=== PATIENT | female | born 1940 | race Caucasian/White ===

== ENCOUNTER 2021-03-16 15:57 | Emergency (ER) | payer OTHER ==
[~2021-03-16] VITALS: Ht 149.9 cm; Wt 57.1 kg
[~2021-03-16 15:57] MED LIST: ABILIFY 5 MG TAB5 MG PO; ACID CONTROL150 MG PO; AMBEREN PO; ARICEPT 5 MG TAB5 MG PO; ASPIR 8181 M1 PO; BONIVA150 MG PO; CABERGOLINE 0.0.5 M1 PO; CALCIUM PO; COLACE100 MG PO; DESONIDE CR. 1515 GM TOP; FISH OIL 1,0001 EAC5 PO; FLONASE 0.05%50 MCG NASAL; FLUVOXAMINE MA100 MG PO; GABAPENTIN 100100 MG PO; HYDROCHLOROTHIA25 M2 PO; HYDROCODON-ACE1 EAC8 PO; HYDROCODONE-APA1 TA1 PO; IBUPROFEN 600600 M1 PO; KLOR-CON 10 ER10 MEQ PO; LISINOPRIL20 MG PO; LUVOX 50MG TABL50 M1 PO; LUVOX CR100 MG PO; MAGNES PO; NAMENDA XR21 MG PO; OMEGA 3-6-9 CO1 EACH PO; PRILOSEC20 MG PO; PROBIOTIC1 EAC1 PO; PROBIOTIC1 EACH PO; RESTORIL7.5 MG PO; ROVIN-CF OF TA1 EACH PO; SIMVASTATIN20 MG PO; THERALITH XR T1 EACH PO; THIOLA100 MG PO; VITAMIN D31000 UNI2 PO; VITAMIN E400 UNIT PO; VITAMINC500 PO; WELLBUTRIN 100100 M1 PO; WELLBUTRIN 100100 MG PO; ZOCOR20 MG PO; [UNRECOGNIZED DRUG - OTHER] TOP
[2021-03-16 17:16] LABS: URINE BILIRUBIN NEGATIVE (Negative); URINE BLOOD NEGATIVE (Negative); URINE CLARITY CLEAR; URINE COLOR YELLOW; URINE GLUCOSE-RANDOM* NEGATIVE (Negative); URINE KETONES NEGATIVE (Negative); URINE NITRITE-REFLEX NEGATIVE (Negative); URINE PROTEIN (DIPSTICK) NEGATIVE (Negative); URINE SPECIFIC GRAVITY 1.015 (1.005-1.035); URINE UROBILINOGEN 0.2 E.U./dl (0.2-1.0)
[2021-03-16 17:20] LABS: URINE LEUKOCYTES-REFLEX 1+ (Negative)
[2021-03-16 17:22] LABS: CALCIUM 9.6 mg/dL (8.5-10.1); CREATININE 0.9 mg/dL (0.6-1.0); POTASSIUM 4.1 mmol/L (3.5-5.1)
[2021-03-16 17:28] LABS: CASTS None Seen /LPF (None Seen); SQUAMOUS 0-3 Few /LPF (0-3)
[2021-03-16 17:28] LABS: HEMATOCRIT 39.9 % (37.0-47.0); HEMOGLOBIN 13.5 gm/dL (12.0-15.0); MCH 32.4 pg (26.0-34.0); MCHC 33.9 g/dL (28.0-37.0); MCV 95.6 fL (80.0-100.0); RBC 4.17 mil/uL (4.20-5.00); RDW 12.9 % (10.5-14.5); WBC 6.1 thou/uL (4.0-11.0)
[2021-03-16 17:29] LABS: BACTERIA-REFLEX 1-9 Few /HPF (None Seen); CRYSTALS None Seen /LPF (None Seen); URINE RBC 1-2 Rare /HPF (NONE SEEN); URINE WBC-REFLEX 6-15 Few /HPF (0-5)
[2021-03-16] MEDS ORDERED: ACETAMINOPHEN500 MG PO (18:27)
[2021-03-16 19:31] LABS: ALBUMIN 3.6 g/dL (3.4-5.0); DIRECT BILIRUBIN < 0.1 mg/dL (<0.1-0.2); SGOT 21 U/L (15-37); SGPT 19 U/L (30-65); TOTAL BILIRUBIN 0.2 mg/dL (0.2-1.0); TOTAL PROTEIN 7.5 g/dL (6.4-8.2)
[2021-03-16 21:05] VITALS: BP 187/89
--- NOTE | 2021-03-17 07:53 | EKG ---
[place] [place] [address] ELECTROCARDIOGRAM REPORT Name: ROSELINE MATHEW [id number] Admission: 03/16/21 Attend Phys: Discharge: 03/16/21 Date of : 44 Report #: [id number] [facility] ED Test Date: 2021-03-16 Test Time: 17:00:57 Pat Name: ROSELINE MATHEW Department: Room: Gender: F Metal Bonder: [id number] : 1940 Requested By: Kat Pelayo Order Number: [id number] MD: Skyler Crowley Measurements Intervals [place] Rate: 73 P: 18 AK: 187 QRS: -15 QRSD: 130 T: 31 QT: 441 QTc: 486 Interpretive Statements Sinus rhythm Atrial premature complex Probable left atrial enlargement Left bundle branch block Compared to ECG 08/22/2014 11:48:09 Atrial premature complex(es) now present Left bundle-branch block now present Electronically Signed On 03-17-2021 7:53:00 PARAPROFESSIONAL AIDE by Skyler Crowley [email or web address] <ELECTRONICALLY SIGNED> By: Skyler Crowley MD, [facility] 03/17/21 0753 1700 1700 Skyler Crowley MD, FAC /EPI
== END 2021-03-16 21:05 ==
LOC: ER 15:57
PROVIDERS: Emergency Medicine
DX: F29 Unspecified psychosis not due to a substance or known physiological condition (principal); Z20.822 Contact with and (suspected) exposure to COVID-19; F32.9 Major depressive disorder, single episode, unspecified; F41.9 Anxiety disorder, unspecified; I10 Essential (primary) hypertension; E78.00 Pure hypercholesterolemia, unspecified; Z87.442 Personal history of urinary calculi; Z90.89 Acquired absence of other organs; Z98.890 Other specified postprocedural states; Z79.82 Long term (current) use of aspirin; Z79.1 Long term (current) use of non-steroidal anti-inflammatories (NSAID); Z79.899 Other long term (current) drug therapy; Z88.2 Allergy status to sulfonamides

== ENCOUNTER 2021-03-16 17:42 | Inpatient (IN) | payer OTHER ==
[~2021-03-16] VITALS: Ht 149.9 cm; Wt 57.3 kg
[2021-03-16] MEDS ORDERED: ACETAMINOPHEN500 MG PO (18:27)
[2021-03-16 21:15] VITALS: BP 157/100
--- NOTE | 2021-03-17 01:10 | NUR ---
PATIENT ADMITTED TO [facility] UNIT BY CART AROUND 2100. SHE WAS A/0X1 AND ANXIOUS. PATIENT IS A RESIDENT AT THE [facility] WHERE SHE AND HER LIVE. THEY BOTH ARE IN ASSISTED LIVING MEMORY CARE. SPOKE WITH PATIENT'S DAUGHTER/DPOA,MUNIRA MATHEW BY PHONE. SHE STATES PHONES HAVE BEEN DOWN AT [facility] AND WITH FAMILY MEMBERS AND HAVE NOT HAD CONTACT WITH PATIENT FOR A WEEK. SHE FEELS PATIENT IS ACTING OUT BECAUSE SHE DOESN'T KNOW WHERE HER FAMILY IS AND MAY FEEL DESERTED. PATIENT HAS YELLED OUT COMMENTS THAT HER FAMILY HAS LEFT HER. PATIENT HAS A LONG HEALTH HISTORY OF HTN,HLD,OSTEOPOROSIS, SPONDOLYSIS OF CERVICAL AND THORACIC BACK. PATIENT HAD SURGERY 10 YEARS AGO ON CERVICAL SPINE WHICH LEFT HER WITH SEVERE CHRONIC PAIN IN CERVICAL AND THORACIC AREA. 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 SHE HAS FALLEN MULTIPLE TIMES BEFORE COMING HERE AND DAUGHTER STATES SHE ALWAYS SEEMS TO FALL HEAD FIRST AND HIT HER HEAD. PATIENT ALSO IS ON A MED THAT IN NONFORMULARY FOR HISTORY OF REOCCURING KIDNEY STONES. HX OF CHRONIC EAR INFECTIONS AND SCALP AND EARS ITCHING. PATIENT HAS TACTILE SENSITIVITY OF THE SKIN. SHE EXPERIENCES PAIN WHEN TOUCHED AND NEEDS TO WEAR SOFT CLOTHING. PATIENT ALSO HAS BEEN KNOWN TO PULL HER HAIR OUT WHEN HER SCALP AND EARS ARE ITCHING BADLY. DAUGHTER IS IN [place], [place] LOOKING FOR MEDICAID PLACEMENT FOR HER PARENTS AT THIS TIME. SHE IS IN HOPES OF HAVING THEM MOVED THERE IN NEXT MONTH. CONSENTS GONE OVER WITH DTR/DPOA BY PHONE AND CODE GIVEN TO THE DAUGHTER. DAUGHTER STATES THAT PT WALKS WITH WALKER. SHE HAS BEEN IN BED SINCE ARRIVING TO ED AND [facility]. PATIENT WAS SCREAMING AT TOP OF HER LUNGS WITH LOUD SQUEALS AND SCREAMING THAT SHE WANTS TO KILL THE PEOPLE THAT SENT HER HERE. SHE DOESN'T UNDERSTAND WHY SHE NEEDS TO BE HERE. SHE FEELS HER FAMILY HAS DESERTED HER. TRIED TALKING WITH PATIENT TO CALM HER. SHE CANNOT REMEMBER INSTRUCTIONS D/T DEMENTIA. DR MAC WAS CALLED AND ORDERS GIVEN TO GIVE PATIENT HALDOL 5MG IM WITH ATIVAN 2MG IM. PATIENT HELD ANOTHER NURSE'S HAND AND DID NOT NEED A MANUAL HOLD. SHE TOLERATED WELL BUT DID SAY HER ARM WAS SORE. PATIENT BEGAN CALMING WITHING 20 MINUTES. SHE REMAINS AWAKE AT THIS TIME BUT IS QUIET AND TALKS TO SELF AT TIMES AND TAKES COVERS OFF AND THEN WANTS BACK ON BECAUSE COLD. Theodore LOZANO NP NOTIFIED AND SHE WILL PUT IN ADDITIONAL ORDER FOR ITCHING SHE SAID. PHYSICAL ASSESSMENT WNL. PATIENT'S BP WAS 157/130 WHEN FIRST GETTING HERE. RECHECKED MANUALLY AND WAS 180/130. DR MAC NOTIFIED AND RECHECKED BP AFTER HALDOL/ATIVAN GIVEN AND BP CAME DOWN TO 157/60. PATIENT GIVEN NONSLIP SOCKS, WHICH SHE TOOK OFF ONCE IN BED. PT WITH BRIEF ON. CONTINENT SO FAR. BED IN LOW POSITION AND BED ALARM ON. ROUTINE ROUNDS TO ASSESS SAFETY AND STATUS OF PATIENT.
[2021-03-17 06:20] LABS: CHOLESTEROL 264 mg/dL (<200); HDL CHOLESTEROL 77 mg/dL (>40); LDL CHOLESTEROL 175 mg/dL (<100); TC:HDL 3.4 Ratio (Not establshd); TRIGLYCERIDE 60 mg/dL (<150); VLDL 12 mg/dL (<40)
[2021-03-17 06:22] LABS: SERUM ASSESSMENT Clear
[2021-03-17 10:04] VITALS: BP 161/102
[2021-03-17 10:24] VITALS: BP 161/102
--- NOTE | 2021-03-17 11:12 | NUR ---
RESUMMED CARE FROM OVERNIGHT SHIFT THIS AM, PATIENT IN ROOM SLEEPING. I WOKE PATIENT UP TO EAT BREAKFAST PATIENT STARTED YELLING LOUDLY. DR MAC MOVED PATIENT NEXT TO NURSES STATION. PATIENT AFTER 30 MINUTES TOOK MEDICATION CRUSHED IN APPLESAUCE. PATIENT CONFUSED AND NOT ABLE TO TELL ME ABOUT SI/HI/AH/VH AT PRESENT. PATIENTS ABDOMEN SOFT BOWEL SOUNDS PRESENT, PATIENTS LUNGS CLEAR. PATIENT IS SLEEPING IN AMPARO CHAIR MOST OF THE MORNING; WILL CONTINUE TO MONITOR PATIENT FOR SAFETY AND BEHAVIORS.
--- NOTE | 2021-03-17 17:45 | NUR ---
ANJEL and Dr. Auguste were able to talk to the Pt's daughter/DPOA, Nae [phone]. Nae expressed concerns about Pt's hx of kidney stones, brain tumor, and other issues that may be causing the Pt pain and to yell out. Dr. Auguste explained that some of the concerns expressed, Pt may need to be seen on outpatient concern the matters. It was explained to Nae that due to the type of unit [facility] is some procedures could not be complete such as an MRI. Nae expressed disappointment about this. Dr. Auguste went over medications. Placement was discussed. Nae stated that she is currently looking for placement in [place] for the Pt. Nae was not sure if she would be able to secure placement by the end of this hospital stay. A family meeting was scheduled for 03/24/2021 @ 12pm.
[2021-03-17 20:07] VITALS: BP 140/48
[2021-03-18 01:06] LABS: GLYCOHEMOGLOBIN (HGB A1C) 5.9 % (4.8-5.6)
--- NOTE | 2021-03-18 02:43 | NUR ---
PATIENT SAT UP IN DINING ROOM AT A TABLE IN AMPARO CHAIR. SHE WAS CALM AND COOPERATIVE FOR THE MOST PART. A COUPLE OF TIMES SHE CRIED OUT AND SCREAMED BUT STATED SHE WAS TIRED. ATTEMPTED TO WALKE PATIENT TO ROOM WITH WALKER BUT SHE COULD ONLY TAKE A FEW STEPS AND WE WHEELED HER TO HER ROOM THE REST OF THE WAY. SHE STATES SHE NEEDS TO USE THE RESTROOM. SAT HER ON THE [facility] AND SHE VOIDED. ASSISTED PATIENT TO BED. SHE DENIES SI/HI/AVH. HER SISTER CALLED TO TALK WITH HER AFTER WE JUST GOT HER INTO BED BUT WHEN PHONE WAS GIVEN TO HER SHE SAID INTO THE PHONE, "TOO LATE." AND HUNG UP. SISTER CALLED AND SPOKE WITH THIS NURSE. SHE HAD THE CODE AND WAS GIVEN BRIEF UPDATE OF HOW PATIENT HAS BEEN TODAY. PATIENT HAS BEEN RESTING REST OF NIGHT. NO PAIN MEDS GIVEN SO FAR THIS EVENING. SHE HAD SOME SHORTLY BEFORE THIS SHIFT. BED IN LOW POSITION AND BED ALARM IS ON. ROUTINE ROUNDS TO ASSESS SAFETY AND STATUS OF PATIENT.
--- NOTE | 2021-03-18 09:25 | H ---
[facility] [place] [address] HISTORY AND PHYSICAL Name: ROSELINE MATHEW Room #: 525A-A ADM IN M.R.#: [id number] Admission: 03/16/21 Attend Phys: Alfred Mclean DO Discharge: Date of : 44 Report #: [id number] THIS REPORT FOR: cc: Javy Vallejo MD,Javy Mclean,Alfred Castro DO ~ DATE OF SERVICE: 03/17/2021 INPATIENT PSYCHIATRIC EVALUATION ATTENDING PHYSICIAN: Alfred Mclean DO HEALTHCARE CONSULTING MANAGER: Alfred Benson MD REASON FOR ADMISSION: Reported increased agitation and assaultiveness at the assisted living facility at the [facility]. SOURCES OF INFORMATION: Records from the [facility], hospital Emergency Room records, telephone conversation with her daughter, and niece. CHIEF COMPLAINT: "Aaaaah as in screaming." HISTORY OF PRESENT ILLNESS: This is a 81-year-old female with documented history of Alzheimer's dementia. She has been in an assisted living for several years. She was sent out for refusing medications, frequent agitation, and screaming constantly. Her lives with her there, he has dementia as well. She was evidently aggressive with him. She is oriented to person, not to place or time for me. The patient has had several years of neurodegenerative illness. The patient really was not able to give me a good history, so switching over to her daughter who lives in [place], [place], but now is visiting [place], [place], where she is looking for long-term care facility for them. She describes that [facility] Val[facility]. 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 She is x 1. No history of physical, sexual or emotional abuse. She smoked cigarettes until her 50s, so I would say she has not smoked in 20 years. No history of drug or alcohol use. She was born and raised in [place], [place]. In terms of family history, her mother had dementia. She has not had a prior psychiatric hospitalizations since. Currently, she did have outpatient psychiatric services through Dr. Duran in [place]. Apparently, he started her on Luvox and bupropion. The patient has 3 daughters, told her oldest daughter has Down syndrome and lives in [place], the middle daughter has significant bipolar disorder as well as borderline personality disorder and lives in [place], and her younger daughter is her DPOA and the one we spoke to, her name is Latasha Mathew and her number is [phone]. [address] [address] HISTORY AND PHYSICAL Name: ROSELINE MATHEW Room #: 525A-A [facility] IN M.R.#: [id number] Admission: 03/16/21 Attend Phys: Alfred Mclean DO Discharge: Date of : 44 Report #: [id number] PAST MEDICAL PROBLEMS: Chronic kidney disease stage III, history of calculus of the kidney, history of diabetes mellitus type 2, benign neoplasm of the pituitary gland, urge incontinence, and history of irritable bowel syndrome with diarrhea, spinal stenosis. REVIEW OF SYSTEMS: Not able to be obtained. PAST SURGICAL HISTORY: Tonsillectomy, back surgery, wrist fracture. ALLERGIES: The patient has allergies to SULFA medications. 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 She is taking a non-formulary med, carbogoline I believe 400 mg twice a day, this is [facility] med. She had been taking Aricept at the [facility], which I have discontinued and she was taking memantine 21 mg XR daily. I also think she is too advanced to benefit from med as a cognitive enhancer. Additional home medications are lisinopril 20 mg oral daily, lactobacillus 1 capsule oral daily, and docusate 100 mg b.i.d. She was started on cephalexin by her hospitalist. She has been taking 300 mg daily Wellbutrin-XL, I plan to discontinue the Wellbutrin; aspirin 81 mg oral daily, continue that; hydrocodone 5/325 one tab p.o. b.i.d. p.r.n. for breakthrough pain; pantoprazole 20 mg oral daily; hydrochlorothiazide 25 mg oral daily; hydroxyzine 10 mg q. 6 hours p.r.n. itching. Additionally for this patient, I have been giving scheduled Seroquel now 25 mg oral t.i.d. with 2.5 mg IM olanzapine, so that is her current medications list. PHYSICAL EXAMINATION: VITAL SIGNS: Today, temperature 35.9, pulse 70, respirations 17, BP 161/102, O2 sat 98%. BMI 25.1, weight 56.444 kilograms, height 149.86 cm. MUSCULOSKELETAL: In Rosa chair, ill, frail-appearing, unkempt. MENTAL STATUS EXAMINATION: Well-developed, ill-appearing female, apparently stated age. Attention limited. Concentration impaired. Screaming at times. Speech was verbally spontaneous, did have word finding difficulties. I was not able to assess well for suicidality, homicidality, and she was not self-injurious. I did see some referencing to unseen others behind me, so I do believe there were visual hallucinations. She denied auditory or tactile hallucinations. Mood and affect was irritable, constricted, congruent. Memory not able to be formally tested. Insight and judgment impaired. Fund of knowledge well below average. [facility] [address] [place] [address] HISTORY AND PHYSICAL Name: ROSELINE MATHEW Room #: 525A-A ADM IN [facility]#: [id number] Admission: 03/16/21 Attend Phys: Alfred Mclean DO Discharge: Date of : 44 Report #: [id number] FORMULATION: A 81-year-old demented female living in an assisted living at the [facility], sent out for resistive oppositional behaviors. DIAGNOSES: Major neurocognitive disorder, likely due to Alzheimer's disease with behavioral disturbance. 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 PLAN: Admitted via DPOA to Geriatric Psychiatry, evaluate, stabilize, obtain collateral. We will keep her as a full code for now. The patient has had suspected difficulty swallowing, so I ordered speech and also PT evaluations for mobility. We will plan for family meeting next Tuesday at noon central time. Medictaion chnages as outlined above. ESTIMATED LENGTH OF STAY: 10-14 days. STRENGTHS: She is insured, supportive family. WEAKNESSES: Advanced age and dementia. All greater than 60 minutes spent on case today. Greater than 50% of time in reviewing records and coordination of care along with telephone conversation with daughter and niece. <ELECTRONICALLY SIGNED> By: Alfred Mclean DO 03/18/21 0925 1227 1434 Alfred Mclean DO /nt
[2021-03-18 13:59] VITALS: BP 168/93
[2021-03-18 14:29] VITALS: BP 168/93
--- NOTE | 2021-03-18 15:58 | NUR ---
RESUMMED CARE FROM OVERNIGHT SHIFT THIS AM, PATIET IN DAY ROOM SITTING QUIET. PATIENT IS ALERT TO SELF ONLY UNABLE TO TELL ME ABOUT SI/HI/AH/VH AT PRESENT. PATIENT IS CONFUSED AND HAS COGNITIVE DO, PATIENT ATE BREAKFAST TOOK MEDICATION CRUSHED IN PUDDING. PATIENTS ABDOMEN SOFT BOWEL SOUNDS PRESENT, PATIENTS LUNGS CLEAR. PATIENTS DAUGHTER CALLED AND WANTED CT AND MEDICATION LIST. I TOLD SHASHI THAT THIS IS A MEDICAL RECORDS ISSUE AND THAT NOTHING COULD BE FAXED UNTIL PATIENT IS DISCHARGED AND A RELEASE SIGNED. PATIENT ASKED ABOUT SENDING CLOTHING FOR PATIENT. I EXPLAINED TO DAUGHTER THAT THE PATIENT IS A HIGH FALL RISK AND IS WEARNG THE YELLOW SHIRT AND YELLOW SLIPPERS AND WEARS HOSPITAL PANTS. PATIENT WALKED WITH PT FROM DAYROOM TO HER ROOM WITH GAIT BELT AND AMPARO CHAIR BEHIND PATIENT. PATIENT HAS NOT DISPLAYED ANY BEHAVIORS THIS SHIFT. WILL CONTINUE TO MONITOR PATIENT FOR SAFETY AND BEHAVIORS.
[2021-03-18 19:29] VITALS: BP 139/95
--- NOTE | 2021-03-18 22:54 | NUR ---
At onset of powerhouse engineer pt was sitting in xochitl chair in day room awake. This shift pt was alert and oriented to self. Pt's speech is difficult to understand. Pt does not answer questions appropriately. Pt makes poor eye contact. Affect is constricted. Pt occassionally yells out from her bed. Pt required her medication to be crushed. Pt compliant wiht vital signs and medications. Pt was put to bed, but became restless and then was moved to the day room in xochitl chair for the night. Fall precautions are in place. Will continue to monitor.
[2021-03-19 03:10] VITALS: BP 219/68
--- NOTE | 2021-03-19 03:55 | NUR ---
FALL EVENT NOTE At approx 0310 pt was sitting in xochitl chair in day room. Pt was seated on table, with yellow socks on, yellow fall risk band on, yellow fall risk shirt on, and sitting on chair alarm. Pt was observed by BARK PEELER to slide out of the chair onto the floor. Pt did not hit her head and there was no sign of injury. Pt appeared to be alert and oriented to self; which has been baseline this shift. Pt did not voice she was in pain. Vital signs were obtained; blood pressure was 219/68, pulse 81 and oxygen saturation was 98%. RN called MANAGER OF OPERATIONS software integration developer Rolanda Carpio to notify of fall and blood pressure. MYA Carpio advised to recheck vital signs in one hour if systlic is above 160. RN called and notified Dr. Jade Dhillon of fall as well. After fall assessment, pt was placed back onto chair and moved closer in the day room to where landscaper were seated. Fall precautions remain in place. Will continue to monitor.
[2021-03-19 04:12] VITALS: BP 139/95
[2021-03-19 07:05] VITALS: BP 183/63
--- NOTE | 2021-03-19 09:14 | NUR ---
Late entry - on 03-18-21 I spoke to [facility] as she had questions regarding our unit and our guidelines. Sent her the welcome letter - her name is Rufina Perez, her email is
[2021-03-19 09:41] VITALS: BP 183/63
[2021-03-19 16:23] VITALS: BP 183/63
--- NOTE | 2021-03-19 18:32 | NUR ---
Resummed pt care this morning from overnight shift. Client was yelling and screaming in activity area, but did not verbalize what issue was or/could not verbalize what issue she had. Client was given prn Haldol with her medications that was crushed in pudding at this time, which helped calm client. Client also given hydrocodone as client was grimacing and appeared to be in pain given observation from non-verbal pain scale. After these prns, client was less tense and exhibited less symptoms. No depression noted, though agitation was evident in behavior this morning. Client did not express any suicidal or homicidal thoughts on this shift. Client did appear to have visual and audio hallucinations prior to administration of prn medication as she was yelling at air and screaming, but calmed significantly after administration. Pt has been toileted several times during this shift, and currently presents no concerns.
[2021-03-19 19:00] VITALS: BP 149/74
--- NOTE | 2021-03-20 05:59 | NUR ---
03-19-21 CARE TRANSFERRED 1900 OBSERVED PT SITTING IN DAY ROOM IN RECLINER. LATER PT AAOX1, VSS, RR EVEN AND NONLABORED ON RA, LUNGS CLEAR, HT RR, ABD SOFT AND ACTIVE. PT RESTLESS BUT COOPERATIVE DURING NURSING ASSESSMENT, OBSERVED NO SI/HI BEHAVIORS. LATER NOTED PT YELLING OUT AND BECOMING AGITATED, PRN MEDICATION ADMIN FOR PAIN, PT HAD NO DIFFICULTIES TAKING MEDICATION CRUSHED IN APPLESAUCE. LATER NOTED PT RESTING WITH EYES CLOSED. PT WILL CONTINUE TO BE MONITOR PER [facility] PROTOCOL.
--- NOTE | 2021-03-20 17:03 | NUR ---
SW faxed updates to the [facility]
[2021-03-20 18:22] VITALS: BP 156/57
--- NOTE | 2021-03-20 19:04 | NUR ---
Resummed pt care from overnight shift this am. Client presented a agitated and confused during this time, and was oriented to self only. Client presented with sceaming, stating "help me, help, where's Mason- you all want to keep me here" while kicking hands and feet. PRN haldol given for agitation at this time which helped resolve symptoms for client for several hours. Client was unable to verbalize depression and anxiety. Hallucinations were noted to be auditory, as client was talking to herself, and visual, as client would point out people and shadows that others could not see. Client did not voice any suicidal or homicidal behavior at this time. Client lung sounds were clear. Bowel sounds present. Last BM 03/19/21. At dinner time, client became agitated again. She started to scream and yell "help" "god help" "ahhhh" and started to kick and wave hands. Dr. Mclean called. Haldol dc, 5 mg zyprexa IM given without needing to use restraint, and 75mg seroquel PRN added to MAR. Other med changes include changing hydrocodone from 7 to 5 mg earlier by hospitalist and zyprexa increase on scheduled zyprexa. Client family Edda, Cynthia, and Sasha all called about client status and were given brief status update. All requested to talk to client, and were able to speak to client during this shift despite client's confusion. [facility] No further concerns at this time.
[2021-03-20 19:25] VITALS: BP 162/53
--- NOTE | 2021-03-21 05:22 | NUR ---
03-20-21 CARE TRANSFERRED 1899. PT AAOX4, VSS, RR EVEN AND NONLABORED ON RA. PT LUNGS CLEAR, HT RR, ABD ACTIVE/SOFT/NONTENDER. OBSERVED NO SI/HI BEHAVIORS. PT COOPEATIVE AND TRIES TO ANSWERES QUESTION BUT HAS DIFFICULTIES ARTICULATING THOUGHTS INTO WORDS. LATER NOTED PT RESTLESS AND YELLING OUT, PRN PAIN MEDICATION ADMIN PT HAD NO DIFFICULTIES TAKING PM MEDICATION CRUSHED IN PUDDING, PT ATE 100% HS SNACK AND DRANK 240ML OF WATER, FLUIDS WILL CONTINUE TO BE ENCOURAGED WHILE PT AWAKE. UPON REASSESSMENT NOTED PT RESTING WITH EYES CLOSED IN BED, LOCKED, LOWEST AND ALARM ON. PT WILL CONTINUE TO BE MONITOR PER [facility] PROTOCOL.
[2021-03-21 09:24] VITALS: BP 152/61
--- NOTE | 2021-03-21 15:47 | NUR ---
WAS NOTED TO BE MILDLY SOMULENT UPON INITIAL ASSESSMENT THIS AM-RECLINING IN CHAIR IN DAYROOM WITH EYES CLOSED-IS ROUSABLE TO VERBAL STIMULI-HOWEVER WILL QUICKLY FALL BACK TO SLEEP-AM MEDICATIONSAND BREAKFAST HELD UNTIL APPROX 94822/1000 WHEN MORE AWAKE AND ABLE TO SWALLOW SAFLEY. TAKES MEDS,TOILETED AND ATE BREAKFAST AND LUNCH WITHOUT DIFFICULTY. WHEN QUESTIONED ABOUT PAIN DURING M ASSESSMENT POINTS TO ARMS,LEGS,AND STATES "EVERYWHERE"DID APPEAR CALMER AFTER SCHEDULED NORCO.AT APPROX 1300 BEGAN TO YELL LOUDLY IN DAYROOM-TAKEN TO ROOM AND SAT 1;1 WITH THIS NURSE FOR 1 HOUR-WOULD CONTINUE TO YELL OUT OCCASSIONALLY-SPEECH CLEAR BUT IS APHASIC AND MAJORITY OF VERBAL RESPONSES ARE NOT COHESIVE/COHERENT. DOES APPEAR TO REPEAT TWO THEMES WHICH ARE UPSETTING TO HER THAT "THEY ARE BEING MEAN TO ME AND LAUGHING AT ME"AND THAT SHE HEARS A MAN CALLING HER NAME. PRN ZYPREXA IM DRAWN UP BUT NOT ADMINISERED D/T PT NO LONGER YELLING AFTER 1HR IN ROOM WITH STAFF-AND SCHEDULED 1500 MEDICATIONS
--- NOTE | 2021-03-21 18:04 | NUR ---
ABDOMEN NOTED TO BE FIRM,BS HYPOACTIVE-MOM 15CC PO PRN AND ASSISTED SEVERAL TIMES TO COMMODE,TOILET AND IS STRAINING-RECTUM BULGING AND HARD BM VISIBLE -WHICH IS UNABLE TO PASS-MD CONTACTED AND FLEETS ENEMA GIVEN-LARGE AMOUNT HARD STOOL PASSED WITH MIMA ASSISTSANCE FROM NURSING STAFF-IS NOTED TO HAVE SMALL AMOUNT SRINIVASA RED BLOOD FROM RECTUM-EXTERNAL HEMRHOID.
[2021-03-21 20:02] VITALS: BP 197/79
--- NOTE | 2021-03-22 05:19 | NUR ---
03-21-21 CARE TRANSFERRED 0 OBSERVED PT SITTING IN RECLINER IN DAY ROOM YELLING OUT. PT WAS COMFORTED AND PT RESPONDED POSITIVELY AND 180ML OF THICK APPLE JUICE GIVEN. PT AAOX1, B/P ELEVATED AND MIMA TAKEN 172, 76, P 82, RR 18 EVEN AND NONLABORED ON RA, LUNGS CLEAR, HT RR, ABD FIRM AND TENDER, PT RESTLESS AND REPOSITON. MOM WAS ADMIN IN PUDDING AND HAD NO DIFFICULTIES WITH MEDICATION CRUSHED. TRAFFIC WAREHOUSE SUPERVISOR REPORTED PT DRANK ANOTHER CUP OF THICKEN APPLE JUICE. LATER PT WAS ASSISTED TO BEDSIDE COMMODE, PT HAS GAS, SCANT AMOUNT OF BM WITH YELLOW URINE. HCP Theodore LOZANO, REPAIR MANAGER CONSULTED. LATER PT VERY RESTLESS AND YELLING OUT AND BECOMING AGITATED, PRN MEDICATION ADMIN CRUSHED IN PUDDING, PT REPOSITON FOR COMFORT. LATER NOTED PT RESTING WITH EYES CLOSED. PT WILL CONTINUE TO BE MONITOR PER [facility] PROTOCOL.
[2021-03-22 09:53] VITALS: BP 157/52
--- NOTE | 2021-03-22 10:51 | NUR ---
03-22-2021--1050--Attempted to fax notes from 03-20-21 to 03-22-21 to nursing hoe. No rersponse--wouldn't go through
--- NOTE | 2021-03-22 19:47 | NUR ---
Patient care resummed; Patient located in the dayroom resting in GeriChair; Patient appears to be sleeping without S/O distress; BOND RUNNER was unable to complete entire assessment on patient due to increased drowsiness; Lung sounds clear bilaterally, unlabored; VSS on RoomAir; Abdomen presents distended, Firm to touch, with bowel sounds presenting hypotensive; BOND RUNNER consulted and a KUB-1View scan was ordered before any more suppositories or Enemas were to be ordered; Scans were reviewed; Patients Morning medications were held, due to not being able to keep patient awake enough to provide safe medication adminitstration; Medications were later given @1055 per Charge Nurses ability to awake patient; Lunch and dinner medication held, informed of medication hold and reasoning; Orders were to continue to hold due to sedatative presence. Patient has not had bladder incontince or bowel today; Patient did not eat Breakfast,Lunch,Dinner, or snacks due to sedatative presence and BOND RUNNER not being able to awaken patient; Fall precautions in place, Will continue to monitior patient for safety and behaviors;
[2021-03-22 19:54] VITALS: BP 166/69
[2021-03-22 20:02] VITALS: BP 117/51
--- NOTE | 2021-03-23 02:54 | NUR ---
PATIENT WAS SITTING UP IN DAYROOM AT A TABLE AT BEGINNING OF THE SHIFT. SHE WAS AWAKE AND ALERT. SHE TOOK HER MEDS WHOLE WITH NECTAR THICK WATER WITHOUT DIFFICULTY. SHE WAS SMILING AND PLEASANT AND INITIATED CONVERSATION 1:1. ONCE I WALKED AWAY FOR A FEW MINUTES SHE BEGAN SCREAMING AND CALLING ME A BITCH. ONCE I RETURNED TO TALK WITH HER, SHE CALMED AND WAS PLEASANT AGAIN. SHE DENIES SI/HI/AVH. SHE IS ALERT TO SELF ONLY. SHE IS INCONTINENT. SHE HAD HS SNACK OF PUDDING AND ATE 50% OF HER SUPPER. SHE WAS ASSISTED TO BED SIDE COMMODE AND THEN TO BED AROUND 2300. SHE HAS BEEN SLEEPING SINCE. BED IN LOW POSITION AND BED ALARM IS ON.
--- NOTE | 2021-03-23 12:15 | NUR ---
RT Progress Note- Carolyne has provided passive participation in some recreation therapy groups since admission. When alert she primarily observes only. Speech is garbled and difficult to follow. TABLE TENDER SLUDGE will continue to encourage participation.
[2021-03-23 13:48] VITALS: BP 178/59
[2021-03-23 14:48] VITALS: BP 141/47
--- NOTE | 2021-03-23 18:33 | NUR ---
Assumed care from overnight shift this morning. Client was in activity area resting and watching tv. Client presented agitated and confused at this time, and was oriented to self and situation. Client was screaming and yelling "help me" during this time, and continued to yell and scream into the air at this time. When redirected, client would continue to scream and would not acknowledge staff. Client given normal medications, but her behavior continued. After reassessment, and after pain medications given to help with pain and restlessness from pain, client was still hollering. PRN seroquel given at this time. Client continued to scream, and was taken to hallway to sit down. Staff helped client to hydrate with liquids at this time, provided a shower cap with dry shampoo to client, and helped reorient client at this time. Client also given prn olanzapine after another 2 hours of intermittent screaming, which helped symptoms subside for client. Client bowel sounds were present, though stomach is distended. PRN MOM given to help client with constipation. Last BM noted 03/21. Client lung sounds clear. No further concerns at this time.
[2021-03-23 19:21] VITALS: BP 121/42
[2021-03-23 19:30] VITALS: BP 92/49
[2021-03-23 20:19] VITALS: BP 92/49
--- NOTE | 2021-03-24 01:09 | NUR ---
PATIENT CARE WAS RESUMED AT 1900. SHE WAS SITTING IN THE HALLWAY ON AMPARO-CHAIR. SHE IS A MAX ASSIST WITH CARE.LUNGS ARE CLEAR BS ACTIVE X4 QUAD. ABLE TO VERBALIZE SOME NEEDS. SHE DENIES PAINS/AVH/SI/HI.ABD IS SOFT AND NONE TENDER. Q12 MINUTES CHECKS ON GOING. BED IS LOW, LOCKED AND ALARMED. SHE TOOK HER MEDS CRUSHED WITH APPLE SAUCE.INCONTINENT OF BOWEL AND BLADDER.BED IS LOW, LOCKED AND ALARMED. YELLOW TOP AND SOCKS ARE ON. PATIENT IS ASSISTED WITH LEATHA-CARE.
[2021-03-24 10:33] VITALS: BP 161/65
--- NOTE | 2021-03-24 15:57 | NUR ---
ANJEL and Dr. Auguste participated in a family meeting with Pt's DPOA, Nae. Beena Mata, a private nurse case repairer, was also apart of this call. Pt's diagnosis was discussed. The recommendation for a higher level of care was given. Nae stated she has looked at facilities in [place] and will be looking at one in [place]. Nae would like the Pt to return to the [facility]. Nae stated she would not be able to secure another placement and move the Pt until April. Medications were discussed. Nae was concerned about the scheduled hydrocodone. The benefits of the the hydrocodone was discussed. Dr. Auguste explained the reason it is scheduled is due to the Pt not being able to effectively communicate her needs/ pain level. Nae voiced understanding of this explanation. There were no other questions or concerns at this time. Pt will return to the [facility]
--- NOTE | 2021-03-24 19:01 | NUR ---
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
[2021-03-24 19:30] VITALS: BP 183/56
[2021-03-24 20:15] VITALS: BP 183/56
--- NOTE | 2021-03-25 02:50 | NUR ---
PATIENT CARE WAS RESUMED AT 1900. SHE WAS IN THE HALLWAY IN A AMPARO CHAIR, ALARMED, LOCKED SHE IS ABLE TO VERBALIZE CARE. LUNGS ARE CLEAR BS ACTIVE X 4QUADS, SHE DENIES PAINS/SI/AVH/HI. SHE IS CONTINIET OF BOWEL AND BLAADER. SHE TOOK HER MEDS IN APPLE-SUACE. SHE CONTINUES TO SCREAM OUT. IM ZYPREXA GUVE WITH SOMEWHAT EFFECT. SHE IS ASSITED WITH [facility]HA CARE AND TRANSFER.
[2021-03-25 08:52] LABS: HEMATOCRIT 40.5 % (37.0-47.0); HEMOGLOBIN 13.3 gm/dL (12.0-15.0); MCH 31.4 pg (26.0-34.0); MCHC 32.9 g/dL (28.0-37.0); MCV 95.6 fL (80.0-100.0); RBC 4.23 mil/uL (4.20-5.00); RDW 12.2 % (10.5-14.5); WBC 9.1 thou/uL (4.0-11.0)
[2021-03-25 09:22] LABS: CALCIUM 9.9 mg/dL (8.5-10.1); CREATININE 1.3 mg/dL (0.6-1.0); POTASSIUM 4.2 mmol/L (3.5-5.1)
[2021-03-25 10:58] VITALS: BP 121/43
--- NOTE | 2021-03-25 17:11 | NUR ---
ANJEL and Dr. Auguste called the Pt's DPOA, Nae, concerning Pt's medical concerns. A VM was left requesting a call back. As of this note there has been no call back.
[2021-03-25 18:21] VITALS: BP 149/66
[2021-03-25 18:22] VITALS: BP 161/57
[2021-03-25 18:23] VITALS: BP 121/43
[2021-03-25 19:17] VITALS: BP 156/71
[2021-03-25 19:30] VITALS: BP 156/71
--- NOTE | 2021-03-26 02:34 | NUR ---
PATIENT CARE WAS RESUMED AT 1900. SHE WAS IN HER ROOM RESTING IN BED WITH EYES OPEN. SHE IS ABLE TO COMMUNICATE SOME NEEDS.LUNGS ARE CLEAR BS ACTIVE X4 QUAD.DENIES ANY SI/AVH/HI AND PAINS AT THIS TIME. SHE IS CONTINENT OF BOWEL AND BLADDER. MEDS ARE CRUSHED WITH APPLE SAUCE. SHE IS A MAX ASSIT WITH CARE AND TRANSFER. FLUIDS WHERE OFFERED AND SHE TOLORATED VERY WELL.NO EMESIS NOTED AT THIS TIME. SHE HAS SOME PERODS OF BEHAVOIRS CHARACTERIZED WITH SREAMING OUT LOUD.PRN SERUQUEL WAS GIVEN WITH SOME GOOD EFFECT.SHE IS RESTING CALM IN BED.ALARM IS ON BED IS LOW AND LOCKED, YELLOW TOP AND SOCKS ARE ON.Q12 MINUTES CHECKS ONGOING CONTINUE CARE AND MONITOR
[2021-03-26 05:57] LABS: ABSOLUTE NEUTROPHILS 6.7 thou/uL (1.4-8.2); BASOPHILS 0.3 % (0.0-2.0); EOSINOPHILS 0.5 % (0.0-3.0); HEMATOCRIT 35.2 % (37.0-47.0); LYMPHOCYTES 13.1 % (24.0-44.0); MCH 32.2 pg (26.0-34.0); MCHC 34.2 g/dL (28.0-37.0); MCV 94.1 fL (80.0-100.0); MONOCYTES 8.3 % (1.0-8.0); PLATELET COUNT 303 thou/uL (150-400); POLYS 77.8 % (36.0-66.0); RBC 3.74 mil/uL (4.20-5.00); RDW 12.3 % (10.5-14.5); WBC 8.7 thou/uL (4.0-11.0)
[2021-03-26 06:13] LABS: ALBUMIN 3.1 g/dL (3.4-5.0); CALCIUM 9.7 mg/dL (8.5-10.1); CREATININE 1.3 mg/dL (0.6-1.0); MAGNESIUM 1.8 mg/dL (1.8-2.4); POTASSIUM 3.7 mmol/L (3.5-5.1); TOTAL BILIRUBIN 0.3 mg/dL (0.2-1.0); TOTAL PROTEIN 6.9 g/dL (6.4-8.2)
[2021-03-26 10:44] VITALS: BP 157/43
--- NOTE | 2021-03-26 16:14 | NUR ---
ANJEL was able to speak to the DON at the [facility] concerning discharge. DON asked about the yelling out. ANJEL explained that this has decreased however this behavior will most likely continue. ANJEL also explained that the Pt is in need of a higher level of care and this is a conversation that has been had with the Pt's DPOA/daughter. Discharge was scheduled for 03/30/2021 @ 1130. PT will be transported via [facility].
--- NOTE | 2021-03-26 16:16 | NUR ---
Alert and orientated to name only. Smiling without s/o distress this AM. When asked is she had any pain she stated no. Denies SI/HI. Periods of yelling/calling out. Compliant with meds, took whole with nectar thick fluids. Breath sounds clear. Reg HR auscultated. Color pink with brisk capillary refill and palpable peripheral pulses. Continent of large amt yellow urine per toilet. Active bowel sounds over soft, rounded abdomen. Small formed BM per toilet. Small external hemmoroid per rectum. Preperation H applied internally and externally per rectum. Able to take several steps with assistance, unsteady gait. Currently in recliner without s/o distress.
[2021-03-26 19:25] VITALS: BP 139/58
--- NOTE | 2021-03-27 02:13 | NUR ---
PATIENT CARE WAS RESUMED AT 1900. SHE WAS IN THE DINING AREA RESTING ON THE AMPARO-CHAIR.SHE IS AWAKE,CONFUSSED ABLE TO VERBALIZE PAINS.SHE IS RELAXED AND SHE DENIES PAINS/AVH/HI .SHE TOOK CRUSHED IN APPLE SUACE. SHE IS INCONTINENT OF BOWEL AND BLADDER. LUNGS ARE CLEAR BS ACTIVE X4 QUADS. SHE IS A MAX ASSIT WITH CARE, TRANSFERS AND LEATHA CARE. BED IS LOW, LOCKED AND ALARMED . SHE TALKED WITH HER DAUGHTER THIS SHIFT AND WAS VERY HAPPY. SHE IS CALM SLEEPING AT THIS TIME. [id number] CHECKS ARE ONGOING CONTINUE CARE
[2021-03-27 09:38] VITALS: BP 181/69
[2021-03-27 14:00] VITALS: BP 172/69
[2021-03-27 14:03] VITALS: BP 162/68
--- NOTE | 2021-03-27 15:15 | NUR ---
Alert and orientated to self only. Confused speech with occassional coherent statements. Denies SI/HI. No speech/behavior suggestive of SI/HI. Breath sounds clear. Reg HR auscultated. Color pink with brisk capillary refill and palpable peripheral pulses. Yellow urine and large stool per report this AM. Active bowel sounds over soft, rounded abdomen. Sat in day room in recliner most of day. Independent in eating. Able to stand with assist and take several steps.
[2021-03-27 19:14] VITALS: BP 173/80
--- NOTE | 2021-03-28 04:15 | NUR ---
03-27-21 CARE TRANSFERRED 1899 OBSERVED PT SITTING IN RECLINER. LATER PT AAOX1, VSS, RR EVEN AND NONLABORED ON RA, LUNGS CLEAR, HT RR, ABD SOFT/ACTIVE/ NONTENDER. NO S/S OF PAIN AND OBSERVED NO SI/HI BEHAVIORS. PT PLESANTLY CONFUSED AND COOPERATIVE. PT HAS DIFFICULTING ARTICULATING HER THOUGHTS INTO WORDS. LATER PT YELLING, PT EASILY REASSURED. PT HAD NO DIFFICULTIES TAKING MEDICATION IN VANILLA PUDDING. LATER NOTED PT RESTING IN BED WITH EYES CLOSED. PT WILL CONTINUE TO BE MONITOR PER [facility].
[2021-03-28 09:08] VITALS: BP 160/55
[2021-03-28 10:04] VITALS: BP 160/55
--- NOTE | 2021-03-28 11:07 | NUR ---
RESUMMED CARE FROM OVERNIGHT SHIFT THIS AM, PATIENT RESTING QUIETLY IN ROOM. PATIENT ASKED IF SHE COULD REST A WHILE, PATIENT TOOK MEDICATION CRUSHED IN PUDDING. PATIENT ALERT TO SELF ONLY PATIENT SAYS NO FOR SI/HI/AH/VH AT PRESENT. PATIENTS ABDOMEN SOFT BOWEL SOUNDS PRESENT PATIENTS LUNGS CLEAR. PATIENT CALM COOPERATIVE WILL CONTINUE TO MONITOR PATIENT FOR SAFETY AND BEHAVIORS.
[2021-03-28 19:04] VITALS: BP 162/75
[2021-03-28 19:50] VITALS: BP 162/75
--- NOTE | 2021-03-29 01:02 | NUR ---
PATIENT WAS CALM AND COOPERATIVE. SHE SAT IN AMPARO CHAIR WITH A BEDSIDE TABLE IN FRONT OF HER AT OUTSIDE THE NURSE STATION. PATIENT WOULD SCREAM OUT IN FRUSTRATION AT TIMES AND WHEN ASKED SHE USUALLY WAS COMPLAINING OR UPSET ABOUT HER NOT CARING FOR HER OR THINKING HER FAMILY LEFT HER ALONE. CALLED PATIENT'S DAUGHTER/CHRIS SAMS AND LEFT MESSAGE THAT PATIENT WANTED TO SPEAK WITH HER. PATIENT'S SISTER CALLED AND SPOKE WITH PATIENT. PATIENT'S SISTER SAID PATIENT SOUNDED WELL AND SHE COULD UNDERSTAND HER MORE THAN SHE HAD DAYS EARLIER. PATIENT TOOK HER MEDS WHOLE WITH YOGURT AND DRANK APPLE JUICE, NECTAR THICK. PATIENT WAS FINISHING HER SUPPER WHEN I CAME ON SHIFT AND ATE 90% OF IT. PATIENT WAS ASSISTED TO THE BATHROOM AND TO BED. SHE SCREAMS OUT OCCASIONALLY BUT CALMS QUICKLY WHEN SPOKEN TO CALMLY AND CONSOLED. PATIENT DOING VERY WELL. DENIES SI/HI. BED IN LOW POSITION AND BED ALARM IS ON. PATIENT IS A HIGH FALL RISK. ROUTINE ROUNDS TO ASSESS SAFETY AND STATUS OF PATIENT.
[2021-03-29 09:34] VITALS: BP 173/73
[2021-03-29 11:10] VITALS: BP 173/73
--- NOTE | 2021-03-29 15:46 | NUR ---
Carolyne was alert and oriented to self only this shift. Pt has difficulty with word finding, therefore has difficulty answering questions or expressing herself at times. Pt did have episodes where she would scream and was brought to the hallway to decrease stimuli but pt responds appropriately when you try to redirect her and talk to her as pt appears to respond well to conversation. Pt participated in groups this shift and appeared to enjoy it as she was laughing and smiling. Pt did yell out a couple times regarding wanting to leave and was reminded she will be leaving tomorrow, but she said she did not want to wait until tomorrow but then was easily distracted. Pt took a nap in the middle of the afternoon and appeared comfortable throughout the day. She was able to alert staff when needing to use the bathroom. She remained on a nectar thick, pureed diet that she appeared to tolerate well and ate about 90% of lunch. Pt did require to be fed at lunch as she appeared to lack motivation to eat on her own. Pt was medication compliant, taking pills crushed in yogurt. Will continue to monitor.
[2021-03-29 19:03] VITALS: BP 132/67
[2021-03-29 19:35] VITALS: BP 132/67
--- NOTE | 2021-03-30 03:33 | NUR ---
PATIENT CARE WAS RESUMED AT 1900. SHE WAS SITTING IN THE HALLWAY AWAKE,CONFUSSED AND CALM. SHE SCREAMS OUT LOUD ONCE IN A WHILE. SHE IS INCONTINET OF BOWEL AND BLADDER. LUNGS ARE CLEAR BS ACTIVE X4 QUAD. SHE DENIES AVH/HI/SI.SHE SPOKE WITH HER DAUGHTER OVER THE PHONE.TOOK HER MEDS IN PUDDING.AMBULATES WITH AMPARO-CHAIR. YELLOW TOP AND SOCKS ARE ON. BED IS LOW, LOCKED AND ALARMED. [id number] CHECKS ARE ONGOING.
[2021-03-30 09:04] VITALS: BP 143/74; BP 173/73
[2021-03-30 09:43] VITALS: BP 143/74
[2021-03-30] MEDS ORDERED: NEURONTIN 300M300 M2 PO (11:10)
[2021-03-30] MEDS ORDERED: SEROQUEL 50 MG50 MG PO (11:11)
[2021-03-30] MEDS ORDERED: SEROQUEL 100 M100 M1 PO (11:12)
[2021-03-30] MEDS ORDERED: SEROQUEL 25 MG25 M1 PO (11:14)
--- NOTE | 2021-03-30 12:08 | NUR ---
Carolyne was alert and oriented to self only this morning. She presented as calm and cooperative and was medicatoin compliant. She was changed into her own clothing prior to discharge and was discharged with all belongings. Private duty nurse, Edwina picked up pt and pt was discharged at 1147. [facility] and all questions answered. Catherine was encouraged to call with any further questions. VM was left for CHRIS Soni to return phone call and review D/C paperwork. Pt was brought to the front enterance to meet private duty nurse via w/c with this RN and SUPERVISOR AGENCY APPOINTMENTS. Pt was transferred per private duty nurse and this RN to vehicle. Pt stable upon discharge.
--- NOTE | 2021-03-31 09:58 | D ---
[facility] [place] [address] [address] DISCHARGE SUMMARY Name: ROSELINE MATHEW Room #: [facility] M.R.#: [id number] Admission: 03/16/21 Attend Phys: Alfred Mclean DO Discharge: 03/30/21 Date of : 44 Report #: [id number] THIS REPORT FOR: cc: Javy Vallejo MD,Javy Mclean,Alfred Castro DO ~ DATE OF SERVICE: 03/30/2021 INPATIENT PSYCHIATRIC DISCHARGE SUMMARY ATTENDING PSYCHIATRIST: Alfred Mclean DO RETIREMENT PLAN SPECIALIST AT TIME OF DISCHARGE: Linda Pascal MD DISCHARGE DIAGNOSES: Major neurocognitive disorder, most likely due to Alzheimer's disease with behavioral disturbance, improved; 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 MEDICAL COMORBIDITIES: Hypertension, hyperlipidemia, pruritus, urinary tract infection. She did a 5-day course of Keflex. Pituitary adenoma, on cabergoline. Chronic kidney disease, gastroesophageal reflux disease. The patient is discharging to assisted living where she was sent from at the [facility] in [place]. PSYCHIATRIC AND MEDICAL CARE: Per receiving facility. DISCHARGE MEDICATIONS: As follows: Cabergoline 0.5 mg tab daily for pituitary adenoma, omeprazole 20 mg oral daily in a.m. for GERD, lisinopril 20 mg oral twice daily for hypertension, docusate 100 mg oral twice daily for bowel motility, fluvoxamine 100 mg oral in the morning and 50 mg in the evening for depression and obsessive compulsive behavior. Lactobacillus 1 tablet oral daily for bowel health, I just noticed this will be given at 1 cap daily, but her home dose was 1 cap oral 3 times daily. Hydrochlorothiazide 25 mg oral daily for hypertension. New medications: Gabapentin 300 mg oral twice daily for mood stabilization and pain. Her Seroquel dose is 125 mg oral 3 times a day at 0900, 1500, and 2100 scheduled for psychosis and impulse control and p.r.n. Seroquel 50 mg every 4 hours p.r.n. rx #30 for that. The patient ambulates with a walker with assistance short distances. She needs assistance with toileting and bathing. DISCHARGE DIET: Pureed solids and nectar thick liquids. She does have some dysphagia. IMAGING: This admission, head CT done on 03/17, this was basically done for increased agitation shows cerebral atrophy, and small vessel ischemic change, no acute intracranial process. She had some constipation. KUB x-ray done showed [facility] [address] [place] [address] DISCHARGE SUMMARY Name: ROSELINE MATHEW Room #: [facility].#: [id number] Admission: 03/16/21 Attend Phys: Alfred Mclean DO Discharge: 03/30/21 Date of : 44 Report #: [id number] nonobstructive bowel gas pattern, mild retained stool. LABORATORY DATA: This admission as follows: Hematology last done 03/26, H and H 12.0 and 35.2, white count 8.7, platelet count 303. Again, that was done on 03/26. Most recent chemistries done on 03/26, sodium 140, potassium 3.7, chloride 103, bicarbonate 29, anion gap 10, BUN 45, creatinine 1.3, estimated GFR 40, glucose 122, calcium 9.7, total bilirubin 0.3, AST 18, ALT 23, alkaline phosphatase 107, total protein 6.9, albumin 3.1. Lipids on this admission, triglycerides 60, cholesterol 264, LDL 175, HDL 77. A1c is usually captured that was 5.9 on this admission. Serology on this admission, COVID-19 PCR was not detected on the , , , or . REASON FOR ADMISSION: Back around 03/16, a 81-year-old female with history of Alzheimer's disease. She is in assisted living at the [facility], sent out for increased agitation and assaultiveness. She reportedly lives with her who also has dementia. Her daughter is considering relocation to [place], [place]. HOSPITAL COURSE: The patient was admitted to Geriatric Psychiatry Unit. Initially, the patient was noted to scream without specific triggers and keeps screaming. We got this significantly reduced with scheduled quetiapine. We had several telephonic family meetings with her daughter, Nimco who was initially in [place] looking at placements with her cousin and then return to [place], [place]. She had not arrived at immediate placement and she was not going to be able to come out to assist with relocation 04/09. Therefore, our discussion changed to getting the patient back to the [facility], which will allow more time for her to get out from [place] and to explore placements around [place]. The patient had periods of resisted behavior, but was largely pleasantly confused. She is having an advanced dementia with receptive expressive aphasia and tends to be oriented to herself and was unable to carry on reasonable discussions other than answer very basic questions like "you know are you in pain" and so forth. PHYSICAL EXAMINATION: VITAL SIGNS: On day of discharge, temperature 36.1, pulse 65, respirations 16, BP 143/70, O2 sat 94%. Weight 57.294 kilos, BMI 25.5. MUSCULOSKELETAL: Seated in a Rosa chair, unkempt, appearing in no apparent distress. MENTAL STATUS EXAMINATION: A well-developed, older than age-appearing female. Attention and concentration are quite limited. Speech normal in rate. variable volume. Thought process: Linear. Very limited thought content. General poverty of thought. mood/affect- congruent, euthymic, happy Denied SI or HI. No self-harm behaviors. Unable to assess well for auditory or visual type hallucinations. Memory known to be impaired, not [facility] [address] [place] [address] DISCHARGE SUMMARY Name: ROSELINE MATHEW Room #: 518A-A [facility] IN .R.#: [id number] Admission: 03/16/21 Attend Phys: Alfred Mclean DO Discharge: 03/30/21 Date of : 44 Report #: [id number] formally tested. Insight and judgment limited. Fund of knowledge well below average. PROGNOSIS: For this patient is guarded and this was explained to her daughter given her advanced dementia, likely complete a life expectancy at the outer limit. <ELECTRONICALLY SIGNED> By: Alfred Mclean DO 03/31/21 [id number] Alfred Mclean DO /nt
== END 2021-03-30 11:47 | DRG 57 ==
LOC: SBH
PROVIDERS: Hospitalist; Nurse Practitioner; ADMIT Psychiatry & Neurology Psychiatry; ATTEND Psychiatry & Neurology Psychiatry
DX: G30.9 Alzheimer's disease, unspecified (principal); F02.81 Dementia in other diseases classified elsewhere, unspecified severity, with behavioral disturbance; N18.30 Chronic kidney disease, stage 3 unspecified; N39.0 Urinary tract infection, site not specified; F01.51 Vascular dementia, unspecified severity, with behavioral disturbance; D35.2 Benign neoplasm of pituitary gland; F29 Unspecified psychosis not due to a substance or known physiological condition; E11.22 Type 2 diabetes mellitus with diabetic chronic kidney disease; M81.0 Age-related osteoporosis without current pathological fracture; K21.9 Gastro-esophageal reflux disease without esophagitis; F32.9 Major depressive disorder, single episode, unspecified; E78.5 Hyperlipidemia, unspecified; E78.00 Pure hypercholesterolemia, unspecified; F41.9 Anxiety disorder, unspecified; F42.9 Obsessive-compulsive disorder, unspecified; Z20.822 Contact with and (suspected) exposure to COVID-19; I12.9 Hypertensive chronic kidney disease with stage 1 through stage 4 chronic kidney disease, or unspecified chronic kidney disease; Z79.899 Other long term (current) drug therapy; Z88.2 Allergy status to sulfonamides; Z87.442 Personal history of urinary calculi
CPT/HCPCS: 10880